=== PATIENT | female | born 1995 | race Caucasian/White ===

== ENCOUNTER 2020-02-04 07:59 | Emergency (ER) | payer BC ==
--- NOTE | 2020-02-04 08:09 | EDM.PDOC ---
ED HPI GENERAL MEDICAL PROBLEM - General Chief Complaint: Abdominal Pain Stated Complaint: ABDOMINAL CRAMPING Time Seen by Provider: 02/04/20 08:08 Source of Information: Reports: Patient History Limitations: Reports: No Limitations - History of Present Illness INITIAL COMMENTS - FREE TEXT/NARRATIVE: This 24 year old female is admitted to the ED with a chief complaint of generalized abdominal pain that started one week ago that moved to her right lower quad yesterday. She also complains of constipation. No nausea or vomiting. Her LMP was 4-5 days ago which she feels that this could be related to it as well. She denies any urinary complaints. No other complaints at this time. Abdominal Pain Score (Numeric/FACES): 8 - Related Data Allergies Allergy/AdvReac Type Severity Reaction Status Date / Time No Known Allergies Allergy Verified 02/04/20 08:09 Home Meds: Home Meds Phenazopyridine HCl [Pyridium] 100 mg PO BID 3 Days #6 tablet 02/04/20 [Rx] Sulfamethoxazole/Trimethoprim [Septra DS] 1 each PO BID 10 Days #20 tab [Rx] ED ROS GENERAL - Review of Systems Review Of Systems: Comprehensive ROS is negative, except as noted in HPI. ED EXAM, GI/ABD - Physical Exam Exam: See Below Exam Limited By: No Limitations General Appearance: Alert, WD/WN, Mild Distress (mild distress complaining of RLQ to Right pelvic pain that is sharp to dull but never goes away.) Eyes: Bilateral: Normal Appearance, EOMI Ears: Normal External Exam, Normal TMs Nose: Normal Inspection, Normal Mucosa Throat/Mouth: Normal Inspection, Normal Oropharynx Head: Atraumatic, Normocephalic Neck: Normal Inspection, Supple, Full Range of Motion Respiratory/Chest: No Respiratory Distress, Lungs Clear, Normal Breath Sounds Cardiovascular: Normal Peripheral Pulses, Regular Rate, Rhythm, No Edema, No Murmur, No Rub GI/Abdominal Exam: Normal Bowel Sounds, Soft, No Organomegaly, No Abnormal Bruit , No Mass, Tender (tenderness noted in the right lower Quad.). No: Guarding, Rebound (Female) Exam: Deferred Rectal (Female) Exam: Deferred Back Exam: Normal Inspection, Full Range of Motion Extremities: Normal Inspection, Normal Capillary Refill Neurological: Alert, Oriented (times 4), CN II-XII Intact, Normal Cognition, Normal Reflexes, No Motor/Sensory Deficits Psychiatric: Normal Affect, Normal Mood Skin Exam: Warm, Dry, Intact, Normal Color, No Rash Lymphatic: No Adenopathy Course - Vital Signs Text/Narrative:: I have reviewed all diagnostic test including the CT of the abdomen and pelvis. The CT scan was unremarkable. Her U/A was positive for at UTI. She will be discharged. She agrees with the discharge plan. Last Recorded V/S: Last Vital Signs Temp 96.5 F L 02/04/20 08:09 Pulse 72 02/04/20 09:43 Resp 16 02/04/20 09:43 BP 111/76 02/04/20 09:43 Pulse Ox 97 02/04/20 09:43 - Orders/Labs/Meds Orders: Active Orders 24 hr Category Date Time Status CULTURE URINE [RM] Stat Lab 02/04/20 08:08 Received Labs: Laboratory Tests 02/04/20 02/04/20 02/04/20 Range/Units 08:08 08:25 08:25 WBC 11.18 H (4.0-11.0) K/uL RBC 4.36 (4.30-5.90) M/uL Hgb 13.0 (12.0-16.0) g/dL Hct 39.9 (36.0-46.0) % MCV 91.5 (80.0-98.0) fL MCH 29.8 (27.0-32.0) pg MCHC 32.6 (31.0-37.0) g/dL RDW Std Deviation 45.6 (28.0-62.0) fl RDW Coeff of Mike 14 (11.0-15.0) % Plt Count 249 (150-400) K/uL MPV 11.50 (7.40-12.00) fL Neut % (Auto) 62.8 (48.0-80.0) % Lymph % (Auto) 24.3 (16.0-40.0) % [place] % (Auto) 11.6 (0.0-15.0) % Eos % (Auto) 1.1 (0.0-7.0) % Baso % (Auto) 0.2 (0.0-1.5) % Neut # (Auto) 7.0 H (1.4-5.7) K/uL Lymph # (Auto) 2.7 H (0.6-2.4) K/uL [place] # (Auto) 1.3 H (0.0-0.8) K/uL Eos # (Auto) 0.1 (0.0-0.7) K/uL Baso # (Auto) 0.0 (0.0-0.1) K/uL Nucleated RBC % 0.0 /100WBC Nucleated RBCs # 0 K/uL Sodium 139 (136-145) mmol/L Potassium 4.2 (3.5-5.1) mmol/L Chloride 105 (98-107) mmol/L Carbon Dioxide 27.7 (21.0-32.0) mmol/L BUN 13 (7.0-18.0) mg/dL Creatinine 0.8 (0.6-1.0) mg/dL Est Cr Clr Drug Dosing 96.73 mL/min Estimated GFR (MDRD) > 60.0 ml/min Glucose 110 H (74-106) mg/dL Calcium 8.6 (8.5-10.1) mg/dL Total Bilirubin 0.1 L (0.2-1.0) mg/dL AST 13 L (15-37) IU/L ALT 16 (14-63) IU/L Alkaline Phosphatase 77 (46-116) U/L Total Protein 7.1 (6.4-8.2) g/dL Albumin 3.5 (3.4-5.0) g/dL Globulin 3.6 (2.6-4.0) g/dL Albumin/Globulin Ratio 1.0 (0.9-1.6) HCG, Qual (NEG) Urine Color YELLOW Urine Appearance SLT CLOUDY Urine pH 6.0 (5.0-8.0) Ur Specific [place] 1.025 (1.001-1.035) Urine Protein NEGATIVE (NEGATIVE) mg/dL Urine Glucose (UA) NEGATIVE (NEGATIVE) mg/dL Urine Ketones NEGATIVE (NEGATIVE) mg/dL Urine Occult Blood MODERATE H (NEGATIVE) Urine Nitrite NEGATIVE (NEGATIVE) Urine Bilirubin NEGATIVE (NEGATIVE) Urine Urobilinogen 0.2 (<2.0) EU/dL Ur Leukocyte Esterase SMALL H (NEGATIVE) Urine RBC 2-5 (0-2/HPF) Urine WBC 10-12 (0-5/HPF) Ur Epithelial Cells FEW (NONE-FEW) Urine Bacteria FEW (NEGATIVE) 02/04/20 Range/Units 08:25 WBC (4.0-11.0) K/uL RBC (4.30-5.90) M/uL Hgb (12.0-16.0) g/dL Hct (36.0-46.0) % MCV (80.0-98.0) fL MCH (27.0-32.0) pg MCHC (31.0-37.0) g/dL RDW Std Deviation (28.0-62.0) fl RDW Coeff of Mike (11.0-15.0) % Plt Count (150-400) K/uL MPV (7.40-12.00) fL Neut % (Auto) (48.0-80.0) % Lymph % (Auto) (16.0-40.0) % [place] % (Auto) (0.0-15.0) % Eos % (Auto) (0.0-7.0) % Baso % (Auto) (0.0-1.5) % Neut # (Auto) (1.4-5.7) K/uL Lymph # (Auto) (0.6-2.4) K/uL [place] # (Auto) (0.0-0.8) K/uL Eos # (Auto) (0.0-0.7) K/uL Baso # (Auto) (0.0-0.1) K/uL Nucleated RBC % /100WBC Nucleated RBCs # K/uL Sodium (136-145) mmol/L Potassium (3.5-5.1) mmol/L Chloride (98-107) mmol/L Carbon Dioxide (21.0-32.0) mmol/L BUN (7.0-18.0) mg/dL Creatinine (0.6-1.0) mg/dL Est Cr Clr Drug Dosing mL/min Estimated GFR (MDRD) ml/min Glucose (74-106) mg/dL Calcium (8.5-10.1) mg/dL Total Bilirubin (0.2-1.0) mg/dL AST (15-37) IU/L ALT (14-63) IU/L Alkaline Phosphatase (46-116) U/L Total Protein (6.4-8.2) g/dL Albumin (3.4-5.0) g/dL Globulin (2.6-4.0) g/dL Albumin/Globulin Ratio (0.9-1.6) HCG, Qual NEGATIVE (NEG) Urine Color Urine Appearance Urine pH (5.0-8.0) Ur Specific [place] (1.001-1.035) Urine Protein (NEGATIVE) mg/dL Urine Glucose (UA) (NEGATIVE) mg/dL Urine Ketones (NEGATIVE) mg/dL Urine Occult Blood (NEGATIVE) Urine Nitrite (NEGATIVE) Urine Bilirubin (NEGATIVE) Urine Urobilinogen (<2.0) EU/dL Ur Leukocyte Esterase (NEGATIVE) Urine RBC (0-2/HPF) Urine WBC (0-5/HPF) Ur Epithelial Cells (NONE-FEW) Urine Bacteria (NEGATIVE) Meds: Medications Discontinued Medications Generic Name Dose Route Start Last Admin Trade Name Freq PRN Reason Stop Dose Admin Sodium Chloride 1,000 mls @ 1,000 mls/hr 02/04/20 08:18 02/04/20 08:27 Normal Saline IV 02/04/20 09:17 1,000 mls/hr .Bolus ONE Administration Oxycodone/Acetaminophen 1 tab 02/04/20 09:19 02/04/20 09:43 Percocet 325-5 Mg PO 02/04/20 09:20 1 tab ONETIME ONE Administration Phenazopyridine HCl 200 mg 02/04/20 10:30 Pyridium PO 02/04/20 10:31 ONETIME ONE Trimethoprim/Sulfamethoxazole 1 tab 02/04/20 10:30 Septra Ds PO 02/04/20 10:31 ONETIME ONE Departure - Departure Time of Disposition: 10:32 Disposition: Home, Self-Care 01 Condition: Good Clinical Impression: UTI (urinary tract infection) Qualifiers: Urinary tract infection type: acute cystitis Hematuria presence: with hematuria Qualified Code(s): N30.01 - Acute cystitis with hematuria - Discharge Information *PRESCRIPTION DRUG MONITORING PROGRAM REVIEWED*: Yes *COPY OF PRESCRIPTION DRUG MONITORING REPORT IN PATIENT MELISA: Yes Instructions: Urinary Tract Infection, Adult, [id number] Referrals: PCP,None [Primary Care Provider] - Forms: ED Department Discharge Additional Instructions: Take all medications as directed. Clear liquids for the next 8 hours and advance your diet as tolerated. Follow up with your PCP in the next two to four days. Rest for the next 24 hours. Return to the ED if your condition gets worse or should you have any questions or concerns. The following information is given to patients seen in the emergency department who are being discharged to home. This information is to outline your options for follow-up care. We provide all patients seen in our emergency department with a follow-up referral. The need for follow-up, as well as the timing and circumstances, are variable depending upon the specifics of your emergency department visit. If you don't have a primary care physician on staff, we will provide you with a referral. We always advise you to contact your personal physician following an emergency department visit to inform them of the circumstance of the visit and for follow-up with them and/or the need for any referrals to a consulting specialist. The emergency department will also refer you to a specialist when appropriate. This referral assures that you have the opportunity for follow-up care with a specialist. All of these measure are taken in an effort to provide you with optimal care, which includes your follow-up. Under all circumstances we always encourage you to contact your private physician who remains a resource for coordinating your care. When calling for follow-up care, please make the office aware that this follow-up is from your recent emergency room visit. If for any reason you are refused follow-up, please contact the [facility] Emergency Department at and asked to speak to the emergency department charge nurse. Sepsis Event Note - Focused Exam Vital Signs: Vital Signs Temp Pulse Resp BP Pulse Ox 02/04/20 09:43 72 16 111/76 97 02/04/20 08:09 96.5 F L 64 17 113/79 97 Date Exam was Performed: 02/04/20 Time Exam was Performed: 10:42 - My Orders Last 24 Hours: My Active Orders 02/04/20 08:08 CULTURE URINE [RM] Stat - Assessment/Plan Last 24 Hours: My Active Orders 02/04/20 08:08 CULTURE URINE [RM] Stat
[2020-02-04] MEDS ORDERED: Sodium Chloride 0.9% 1,000 ML IV ONE (08:18)
[2020-02-04 09:02] LABS: BLOOD UREA NITROGEN,BUN 13 mg/dL (7.0-18.0); CARBON DIOXIDE,CO2 27.7 mmol/L (21.0-32.0); CHLORIDE,CL 105 mmol/L (98-107); GLUCOSE RANDOM 110 mg/dL (74-106); POTASSIUM,K 4.2 mmol/L (3.5-5.1); SODIUM,NA 139 mmol/L (136-145)
[2020-02-04] MEDS ORDERED: Acetaminophen/oxyCODONE 325-5 MG Tab PO ONE (09:19)
--- NOTE | 2020-02-04 09:49 | CT ---
CT abdomen and pelvis Technique: Multiple axial sections were obtained from above the dome of the diaphragm inferiorly through the pubic symphysis. Intravenous contrast was utilized. No oral contrast has been given. Comparison: No prior abdominal imaging is available. Findings: Visualized lung bases show nothing acute. Liver shows no discrete abnormality. Unenhanced hepatic veins are noted from timing of contrast administration. Spleen appears within normal limits in size. Adrenal glands show no nodule. Pancreas shows no discrete abnormality. Gallbladder contains no calcified gallstones. Equivocal fluid around the gallbladder is possible. Kidneys show symmetric contrast enhancement without hydronephrosis or mass. Aorta shows no aneurysm. No retroperitoneal adenopathy or mesenteric abnormalities are seen. No pelvic mass or adenopathy is seen. No free fluid or inflammatory change is identified. Appendix is not visualized with certainty. No free fluid or inflammatory change is appreciated. Bone window settings were reviewed. No acute osseous finding is appreciated. Impression: 1. Questionable fluid around the gallbladder. Please correlate if patient has right upper quadrant symptoms to indicate further evaluation by right upper quadrant abdominal ultrasound. 2. No additional abnormality is appreciated on CT study of the abdomen and pelvis. Diagnostic code #3 This report was dictated in MDT
[2020-02-04] MEDS ORDERED: Sulfamethoxazole/Trimethoprim 800-160 MG Tab PO ONE (10:30)
[2020-02-04] MEDS ORDERED: Phenazopyridine 200 MG Tab PO ONE (10:30)
[2020-02-04] MEDS ORDERED: Iopamidol 755 Mg/ML 100 ML Bottle IVPUSH ONE (16:39)
== END 2020-02-04 10:58 | disposition home or self-care (01) ==
LOC: MW.ED 07:59
DX: N30.00 Acute cystitis without hematuria (principal)
CPT/HCPCS: 36415; 74177; 80053; 81001; 84703; 85025; 87086; 87088; 87186; 99284; A9270; J7030; Q9967; 99283

== ENCOUNTER 2020-03-02 02:33 | Emergency (ER) | payer BC ==
[2020-03-02] MEDS ORDERED: Sodium Chloride 0.9% 1,000 ML IV ONE ×2 (02:53→06:48)
[2020-03-02] MEDS ORDERED: Sodium Chloride 0.9% 2.5 ML Syringe FLUSH PRN (02:53)
[2020-03-02] MEDS ORDERED: Sodium Chloride 0.9% 10 ML Syringe FLUSH PRN (02:53)
[2020-03-02] MEDS ORDERED: Ondansetron 4 MG/2 ML SDV IVPUSH ONE (02:54)
[2020-03-02] MEDS ORDERED: cefTRIAXone 1 GM in Premix Bag 1 BAG IV ONE (03:39)
[2020-03-02] MEDS ORDERED: Sodium Chloride 0.9% 10 ML SDV IV ONE ×2 (03:39→06:40)
[2020-03-02 03:50] LABS: BLOOD UREA NITROGEN,BUN 11 mg/dL (7.0-18.0); CARBON DIOXIDE,CO2 27.1 mmol/L (21.0-32.0); CHLORIDE,CL 100 mmol/L (98-107); GLUCOSE RANDOM 121 mg/dL (74-106); POTASSIUM,K 3.8 mmol/L (3.5-5.1); SODIUM,NA 136 mmol/L (136-145)
[2020-03-02] MEDS ORDERED: Iopamidol 755 Mg/ML 100 ML Bottle IVPUSH ONE (04:14)
[2020-03-02] MEDS ORDERED: Metoclopramide 10 MG/2 ML SDV IVPUSH ONE (04:51)
--- NOTE | 2020-03-02 05:07 | CT ---
INDICATION: Left lower quadrant pain. COMPARISON: None available TECHNIQUE: CT examination of the abdomen and pelvis was performed with the uneventful intravenous administration of 100 cc of Isovue 370 while 3 mm thick axial sections were obtained from the lung bases through the pubic symphysis. Oral contrast was not administered. Please note that all CT scans at this facility use dose modulation, iterative reconstruction, and/or weight-based dosing when appropriate to reduce radiation dose to as low as reasonably achievable. FINDINGS: In the abdomen, the liver has a low-density region in the anterior subcapsular medial segment of the left lobe adjacent to the falciform ligament, probably a hemangioma or focal fatty infiltration. This is a common incidental finding in this region. The rest of the liver is normal in appearance. The spleen, pancreas, and adrenals are normal in appearance. There are multiple patchy areas decreased enhancement scattered throughout the left kidney consistent with pyelonephritis. These are more prominent in the left upper pole than elsewhere. No distinct renal abscess is evident, but the large rounded appearance of some of the areas of hypodensity are worrisome for developing abscesses. The right kidney is normal in appearance with no sign of any abnormal enhancement to suggest pyelonephritis on the right. There is no sign of any renal or ureteral calculi. There is no sign of hydronephrosis. Early contrast excretion is seen in the dependent portion of the right renal collecting system. The gallbladder is normal in appearance. The abdominal aorta is normal in caliber with no sign of dilatation. There is no sign of retroperitoneal mass or adenopathy. The stomach, loops of small bowel, and colon in the abdomen are normal in appearance. In the pelvis, the appendix is nonvisualized, but there is no sign of an inflammatory process in the area of the appendix. The loops of small bowel and colon in the pelvis are normal in appearance. The uterus and adnexal regions are normal in appearance. The urinary bladder is normal in appearance. There is no sign of pelvic or inguinal mass or adenopathy. There is no sign of free air or free fluid in the abdomen or pelvis. There is mild dependent atelectasis in the posterior lung bases. The lung bases are otherwise clear. The osseous structures are normal in appearance for the patient`s age. IMPRESSION: CT of the abdomen shows multiple areas of decreased enhancement scattered throughout the left kidney consistent with pyelonephritis. The size and shape of the some of these are suspicious for early renal abscess formation. No sign of abnormality of the right kidney. Incidental note is made of a hemangioma or fatty focal infiltration of the medial segment of the left lobe of the liver, a common incidental finding of no clinical concern. Normal CT of the pelvis with contrast. No sign of diverticulosis or diverticulitis. Please note that all CT scans at this facility use dose modulation, iterative reconstruction, and/or weight-based dosing when appropriate to reduce radiation dose to as low as reasonably achievable. Dictated by Victor Manuel Navarro MD @ Mar 02 2020 4:57AM Signed by Dr. Victor Manuel Navarro @ Mar 02 2020 5:04AM
--- NOTE | 2020-03-02 05:51 | EDM.PDOC ---
<Keira Azulian - Last Filed: 03/02/20 06:55> ED HPI GENERAL MEDICAL PROBLEM - General Chief Complaint: Fever Stated Complaint: FEVER Time Seen by Provider: 03/02/20 02:35 Source of Information: Reports: Patient History Limitations: Reports: No Limitations - History of Present Illness INITIAL COMMENTS - FREE TEXT/NARRATIVE: 24-year-old female with no past medical history presenting with fever and abdominal pain. 1 week history of intermittent fevers and 1 to 2 days of worsening left lower quadrant abdominal pain along with several days of dysuria. Patient is concerned that she has a UTI. Intermittently taking Tylenol and ibuprofen without relief. Reports nausea and several episodes of nonbloody emesis prior to arrival. Nothing makes her pain better or worse, nonradiating, constant. left lower abdomen Pain Score (Numeric/FACES): 7 - Related Data Allergies Allergy/AdvReac Type Severity Reaction Status Date / Time No Known Allergies Allergy Verified 02/04/20 08:09 Home Meds: Home Meds Phenazopyridine HCl [Pyridium] 100 mg PO BID 3 Days #6 tablet 02/04/20 [Rx] Sulfamethoxazole/Trimethoprim [Septra DS] 1 each PO BID 10 Days #20 tab [Rx] Past Medical History - Past Health History Medical/Surgical History: Denies Medical/Surgical History - Infectious Disease History Infectious Disease History: Reports: None - Past Surgical History Female Surgical History: Reports: Section Social & Family History - Family History Family Medical History: Noncontributory - Tobacco Use Smoking Status *Q: Current Every Day Smoker Years of Tobacco use: 2 Packs/Tins Daily: 1 - Caffeine Use Caffeine Use: Reports: Energy Drinks - Recreational Drug Use Recreational Drug Use: No ED ROS GENERAL - Review of Systems Review Of Systems: See Below Constitutional: Reports: Fever, Chills, Malaise HEENT: Reports: No Symptoms Respiratory: Denies: Shortness of Breath Cardiovascular: Denies: Chest Pain Endocrine: Reports: No Symptoms GI/Abdominal: Reports: Abdominal Pain, Black Stool, Bloody Stool, Diarrhea, Distension, Hematemesis, Hematochezia, Melena, Nausea, Vomiting : Reports: Dysuria, Frequency. Denies: Discharge, Flank Pain, Hematuria Musculoskeletal: Denies: Back Pain Skin: Denies: Rash Neurological: Denies: Headache Psychiatric: Reports: No Symptoms Hematologic/Lymphatic: Reports: No Symptoms Immunologic: Reports: No Symptoms ED EXAM, SEPSIS - Physical Exam Exam: See Below Text/Narrative:: 24-year-old female with fever and abdominal pain. Patient mildly tachycardic, otherwise [hemodynamically stable, afebrile], well- appearing, looks nontoxic. Differential diagnosis includes but is not limited to: UTI, pyelonephritis, renal abscess, sepsis, bacteremia, diverticulitis, epiploic appendagitis, colitis, intra-abdominal infection, kidney stone, and many others [] Plan: Patient is stable to discharge home with outpatient primary care follow- up. Strict emergency department return precautions were provided, patient indicated understanding. All questions were answered prior to departure. Discharged in good condition. Course - Vital Signs Text/Narrative:: Tachycardia resolved after IV fluids. IV access established and labs were sent. CBC shows a leukocytosis. INR and lactate are normal. Electrolytes and renal function normal. Hepatic markers reassuring. Urinalysis appears grossly infected, urine culture sent. IV Zofran given followed by IV Reglan, IV ceftriaxone, 1 L of normal saline. Heart rate improved after these therapies. Blood cultures drawn x2 prior to antibiotics. Obtained CT imaging of the abdomen/pelvis, which was concerning for a left-sided pyelonephritis with possible early developing renal abscesses. Given that we do not have interventional radiology available at our facility, the patient will need to be transferred to [facility] in [place], [place] for a higher level of care. I spoke with the accepting hospitalist Dr. Jacobson in the [facility] ED who agrees to admit. At shift change I had ordered a second liter of normal saline and 1 g of vancomycin IV. We are awaiting ground EMS transport to [facility] at time of shift change at 7 AM. Signed out to my partner Dr. Cardozo awaiting transfer. Last Recorded V/S: Last Vital Signs Temp 98.9 F 03/02/20 08:36 Pulse 79 03/02/20 08:36 Resp 16 03/02/20 08:36 BP 92/51 L 03/02/20 08:36 Pulse Ox 98 03/02/20 08:36 - Orders/Labs/Meds Orders: Active Orders 24 hr Category Date Time Status CULTURE BLOOD [BC] Stat Lab 03/02/20 03:19 Received CULTURE BLOOD [BC] Stat Lab 03/02/20 03:35 Received CULTURE URINE [RM] Stat Lab 03/02/20 02:50 Received Blood Culture x2 Reflex Set [OM.PC] Stat Oth 03/02/20 02:53 Ordered Saline Lock Insert [OM.PC] Stat Oth 03/02/20 02:53 Ordered Labs: Laboratory Tests 03/02/20 03/02/20 03/02/20 Range/Units 02:50 02:50 03:19 WBC 12.92 H (4.0-11.0) K/uL RBC 4.27 L (4.30-5.90) M/uL Hgb 12.9 (12.0-16.0) g/dL Hct 38.1 (36.0-46.0) % MCV 89.2 (80.0-98.0) fL MCH 30.2 (27.0-32.0) pg MCHC 33.9 (31.0-37.0) g/dL RDW Std Deviation 42.8 (28.0-62.0) fl RDW Coeff of Mike 13 (11.0-15.0) % Plt Count 229 (150-400) K/uL MPV 10.70 (7.40-12.00) fL Neut % (Auto) 75.5 (48.0-80.0) % Lymph % (Auto) 9.4 L (16.0-40.0) % [place]air % (Auto) 14.9 (0.0-15.0) % Eos % (Auto) 0.0 (0.0-7.0) % Baso % (Auto) 0.2 (0.0-1.5) % Neut # (Auto) 9.8 H (1.4-5.7) K/uL Lymph # (Auto) 1.2 (0.6-2.4) K/uL [place] # (Auto) 1.9 H (0.0-0.8) K/uL Eos # (Auto) 0.0 (0.0-0.7) K/uL Baso # (Auto) 0.0 (0.0-0.1) K/uL Nucleated RBC % 0.0 /100WBC Nucleated RBCs # 0 K/uL INR Lactate (0.20-2.00) mmol/L Sodium (136-145) mmol/L Potassium (3.5-5.1) mmol/L Chloride (98-107) mmol/L Carbon Dioxide (21.0-32.0) mmol/L BUN (7.0-18.0) mg/dL Creatinine (0.6-1.0) mg/dL Est Cr Clr Drug Dosing mL/min Estimated GFR (MDRD) ml/min Glucose (74-106) mg/dL Calcium (8.5-10.1) mg/dL Total Bilirubin (0.2-1.0) mg/dL AST (15-37) IU/L ALT (14-63) IU/L Alkaline Phosphatase (46-116) U/L Total Protein (6.4-8.2) g/dL Albumin (3.4-5.0) g/dL Globulin (2.6-4.0) g/dL Albumin/Globulin Ratio (0.9-1.6) Urine Color DARK YELLOW Urine Appearance CLOUDY Urine pH 6.0 (5.0-8.0) Ur Specific Melvin >= 1.030 (1.001-1.035) Urine Protein 100 H (NEGATIVE) mg/dL Urine Glucose (UA) NEGATIVE (NEGATIVE) mg/dL Urine Ketones 40 H (NEGATIVE) mg/dL Urine Occult Blood MODERATE H (NEGATIVE) Urine Nitrite POSITIVE H (NEGATIVE) Urine Bilirubin SMALL H (NEGATIVE) Urine Ictotest NEGATIVE Urine Urobilinogen 1.0 (<2.0) EU/dL Ur Leukocyte Esterase NEGATIVE (NEGATIVE) Urine RBC 6-8 (0-2/HPF) Urine WBC 75-80 (0-5/HPF) Ur Epithelial Cells FEW (NONE-FEW) Urine Bacteria 1+ H (NEGATIVE) Urine Mucus MODERATE (NONE-MOD) Urine HCG, Qual NEGATIVE (NEGATIVE) 03/02/20 03/02/20 03/02/20 Range/Units 03:19 03:19 03:19 WBC (4.0-11.0) K/uL RBC (4.30-5.90) M/uL Hgb (12.0-16.0) g/dL Hct (36.0-46.0) % MCV (80.0-98.0) fL MCH (27.0-32.0) pg MCHC (31.0-37.0) g/dL RDW Std Deviation (28.0-62.0) fl RDW Coeff of Mike (11.0-15.0) % Plt Count (150-400) K/uL MPV (7.40-12.00) fL Neut % (Auto) (48.0-80.0) % Lymph % (Auto) (16.0-40.0) % St. Clair % (Auto) (0.0-15.0) % Eos % (Auto) (0.0-7.0) % Baso % (Auto) (0.0-1.5) % Neut # (Auto) (1.4-5.7) K/uL Lymph # (Auto) (0.6-2.4) K/uL St. Clair # (Auto) (0.0-0.8) K/uL Eos # (Auto) (0.0-0.7) K/uL Baso # (Auto) (0.0-0.1) K/uL Nucleated RBC % /100WBC Nucleated RBCs # K/uL INR 1.09 Lactate 1.0 (0.20-2.00) mmol/L Sodium 136 (136-145) mmol/L Potassium 3.8 (3.5-5.1) mmol/L Chloride 100 (98-107) mmol/L Carbon Dioxide 27.1 (21.0-32.0) mmol/L BUN 11 (7.0-18.0) mg/dL Creatinine 0.8 (0.6-1.0) mg/dL Est Cr Clr Drug Dosing 92.37 mL/min Estimated GFR (MDRD) > 60.0 ml/min Glucose 121 H (74-106) mg/dL Calcium 8.6 (8.5-10.1) mg/dL Total Bilirubin 0.5 (0.2-1.0) mg/dL AST 15 (15-37) IU/L ALT 16 (14-63) IU/L Alkaline Phosphatase 61 (46-116) U/L Total Protein 7.8 (6.4-8.2) g/dL Albumin 3.3 L (3.4-5.0) g/dL Globulin 4.5 H (2.6-4.0) g/dL Albumin/Globulin Ratio 0.7 L (0.9-1.6) Urine Color Urine Appearance Urine pH (5.0-8.0) Ur Specific Melvin (1.001-1.035) Urine Protein (NEGATIVE) mg/dL Urine Glucose (UA) (NEGATIVE) mg/dL Urine Ketones (NEGATIVE) mg/dL Urine Occult Blood (NEGATIVE) Urine Nitrite (NEGATIVE) Urine Bilirubin (NEGATIVE) Urine Ictotest Urine Urobilinogen (<2.0) EU/dL Ur Leukocyte Esterase (NEGATIVE) Urine RBC (0-2/HPF) Urine WBC (0-5/HPF) Ur Epithelial Cells (NONE-FEW) Urine Bacteria (NEGATIVE) Urine Mucus (NONE-MOD) Urine HCG, Qual (NEGATIVE) Meds: Medications Discontinued Medications Generic Name Dose Route Start Last Admin Trade Name Freq PRN Reason Stop Dose Admin Acetaminophen 1,000 mg 03/02/20 06:40 03/02/20 06:46 Tylenol Extra Strength PO 03/02/20 06:41 1,000 mg ONETIME ONE Administration Sodium Chloride 1,000 mls @ 1,000 mls/hr 03/02/20 02:53 03/02/20 03:21 Normal Saline IV 03/02/20 03:52 1,000 mls/hr .Bolus ONE Administration Ceftriaxone Sodium/Dextrose 1 50 mls @ 100 mls/hr 03/02/20 03:39 03/02/20 04: 01 gm/ Premix IV 03/02/20 04:08 100 mls/hr ONETIME ONE Administration Sodium Chloride 1,000 mls @ 999 mls/hr 03/02/20 06:48 03/02/20 06:49 Normal Saline IV 03/02/20 07:48 999 mls/hr .Bolus ONE Administration Vancomycin HCl 1 gm/ Sodium 250 mls @ 166 mls/hr 03/02/20 06:49 03/02/20 07: 02 Chloride IV 03/02/20 08:19 166 mls/hr ONETIME ONE Administration Ibuprofen 400 mg 03/02/20 06:40 03/02/20 06:47 Motrin PO 03/02/20 06:41 400 mg ONETIME ONE Administration Iopamidol 100 ml 03/02/20 04:14 03/02/20 04:15 Isovue-370 (76%) IVPUSH 03/02/20 04:15 100 ml ONETIME ONE Administration Metoclopramide HCl 5 mg 03/02/20 04:51 03/02/20 05:13 Reglan IVPUSH 03/02/20 04:52 5 mg ONETIME ONE Administration Ondansetron HCl 4 mg 03/02/20 02:54 03/02/20 03:21 Zofran IVPUSH 03/02/20 02:55 4 mg ONETIME ONE Administration Sodium Chloride 10 ml 03/02/20 02:53 Saline Flush FLUSH ASDIRECTED PRN Keep Vein Open Sodium Chloride 2.5 ml 03/02/20 02:53 03/02/20 06:48 Saline Flush FLUSH 2.5 ml ASDIRECTED PRN Administration Keep Vein Open Sodium Chloride 1,000 ml 03/02/20 03:39 03/02/20 07:09 Normal Saline IV 03/02/20 03:40 Not Given ONETIME ONE Sodium Chloride 1,000 ml 03/02/20 06:40 03/02/20 07:09 Normal Saline IV 03/02/20 06:41 Not Given ONETIME ONE Departure - Departure Time of Disposition: 05:50 Disposition: DC/Tfer to Acute Hospital 02 Condition: Good Clinical Impression: Sepsis due to undetermined organism - Discharge Information *PRESCRIPTION DRUG MONITORING PROGRAM REVIEWED*: Not Applicable *COPY OF PRESCRIPTION DRUG MONITORING REPORT IN PATIENT MELISA: Not Applicable Referrals: PCP,None [Primary Care Provider] - Forms: ED Department Discharge Sepsis Event Note (ED) - Evaluation Sepsis Screening Result: Possible Sepsis Risk - Focused Exam Vital Signs: Vital Signs Temp Temp Pulse Resp BP Pulse Ox 03/02/20 08:36 98.9 F 79 16 92/51 L 98 03/02/20 07:47 98.9 F 03/02/20 07:16 98.9 F 03/02/20 06:50 80 16 97/61 99 03/02/20 06:47 99.5 F 03/02/20 06:46 99.5 F 03/02/20 06:39 99.5 F 86 17 97/53 L 99 03/02/20 06:36 76 99 03/02/20 06:03 98.2 F 88 17 99/55 L 97 03/02/20 05:22 101/62 03/02/20 05:21 98.0 F 03/02/20 05:19 80 18 99/61 98 03/02/20 02:45 98.1 F 96 17 110/65 97 <Killelea,Lety - Last Filed: 03/02/20 08:59> Course - Re-Assessments/Exams Free Text/Narrative Re-Assessment/Exam: 03/02/20 07:34 The patient was reassessed. She is resting comfortably in no acute distress. She reports that she is feeling slightly better. Offered pain medications but she is feeling fine at this time. Again discussed plan of care and currently awaiting ground crew for transfer to [facility]. 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
[2020-03-02] MEDS ORDERED: Acetaminophen 500 MG Tab PO ONE (06:40)
[2020-03-02] MEDS ORDERED: Ibuprofen 400 MG Tab PO ONE (06:40)
== END 2020-03-02 08:54 ==
LOC: MW.ED 02:33
DX: A41.9 Sepsis, unspecified organism (principal); F17.210 Nicotine dependence, cigarettes, uncomplicated
CPT/HCPCS: 36415; 74177; 80053; 81001; 81025; 83605; 85025; 85610; 87040; 87086; 87088; 87186; 96361; 96365; 96366; 96367; 96375; 99285; A9270; J0696; J2405; J2765; J3370; J7030; J7050; Q9967; 99284

== ENCOUNTER 2020-04-25 12:50 | Emergency (ER) | payer BC ==
[2020-04-25] MEDS ORDERED: Lidocaine 1% with EPINEPHrine 1:100,000 20 ML MDV ONE (12:54)
[2020-04-25] MEDS ORDERED: Lidocaine 1% with EPINEPHrine 1:100,000 20 ML MDV INJECT ONE (13:02)
--- NOTE | 2020-04-25 13:49 | EDM.PDOC ---
ED HPI GENERAL MEDICAL PROBLEM - General Chief Complaint: Laceration Stated Complaint: CUT THUMB Time Seen by Provider: 04/25/20 12:51 Source of Information: Reports: Patient History Limitations: Reports: No Limitations - History of Present Illness INITIAL COMMENTS - FREE TEXT/NARRATIVE: HISTORY AND PHYSICAL: History of present illness: Patient is a 24-year-old female presents to the ED today with concern of a laceration to her left thumb. Patient states that she was opening a box with a pocket knife when the knife had slipped and went into her thumb. Patient states she put pressure on the thumb right away and came to the emergency room. Patient states she is up-to-date on her tetanus and just had it a few years ago. Patient states she has been fully able to move the thumb and has full sensation. Patient denies any other symptoms or concerns. Patient denies fever, chills, chest pain, shortness of breath, or cough. Denies headache, neck stiff ness, change in vision, syncope, or near syncope. Denies nausea, vomiting, abdominal pain, diarrhea, constipation, or dysuria. Has not noted any blood in urine or stool. Patient has been eating and drinking appropriately. Review of systems: As per history of present illness and below otherwise all systems reviewed and negative. Past medical history: As per history of present illness and as reviewed below otherwise noncontributory. Surgical history: As per history of present illness and as reviewed below otherwise noncontributory. Social history: See social history for further information Family history: As per history of present illness and as reviewed below otherwise noncontributory. Physical exam: General: Patient is alert, oriented, and in no acute distress. Patient sitting comfortably on exam table. HEENT: Atraumatic, normocephalic, pupils equal and reactive bilaterally, negative for conjunctival pallor or scleral icterus, mucous membranes moist, TMs normal bilaterally, throat clear, neck supple, nontender, trachea midline. No drooling or trismus noted. No meningeal signs. No hot potato voice noted. Lungs: Clear to auscultation, breath sounds equal bilaterally, chest nontender. Heart: S1S2, regular rate and rhythm without overt murmur Abdomen: Soft, nondistended, nontender. Negative for masses or hepatosplenomegaly. Negative for costovertebral tenderness. Pelvis: Stable nontender. Genitourinary: Deferred. Rectal: Deferred. Skin: Intact, warm, dry. No lesions or rashes noted. Extremities: There is a 1cm laceration of the base of the left thumb just superior to the thenar eminence. Patient has full range of motion of complete left hand without deficit. Radial pulses grossly intact with capillary refill less than 2 seconds of the left upper extremity. Otherwise, atraumatic, negative for cords or calf pain. Neurovascular unremarkable. Neuro: Awake, alert, oriented. Cranial nerves II through XII unremarkable. Cerebellum unremarkable. Motor and sensory unremarkable throughout. Exam nonfocal. Notes: Prior to my exam, laceration was bleeding moderately and nursing staff applied pressure immediately prior to my exam. Upon my exam, bleeding had stopped and remained controlled through remainder of patient stay in the ED. After suturing, patient monitored for an additional 15 to 20 minutes without rebleed. Discussed importance for follow-up with a primary care provider. Voices understanding and is agreeable to plan of care. Denies any further questions or concerns at this time. Diagnostics: Hand XR Therapeutics: Lidocaine, Sutures Prescription: None Impression: Thumb laceration, left Plan: 1. Keep the area clean and dry. Continue to monitor for signs of infection as discussed. Sutures to be removed in 7-10 days. 2. Tylenol and/or ibuprofen as directed and as needed for pain management and discomfort. 3. Please follow-up with your primary care provider as discussed. Return to the ED as needed and as discussed. Definitive disposition and diagnosis as appropriate pending reevaluation and review of above. Left Thumb Pain Score (Numeric/FACES): 4 - Related Data Allergies Allergy/AdvReac Type Severity Reaction Status Date / Time No Known Allergies Allergy Verified 04/25/20 12:52 Home Meds: Home Meds . [No Known Home Meds] 04/25/20 [History] Past Medical History - Past Health History Medical/Surgical History: Denies Medical/Surgical History - Infectious Disease History Infectious Disease History: Reports: None - Past Surgical History Female Surgical History: Reports: Section Social & Family History - Family History Family Medical History: Noncontributory - Tobacco Use Smoking Status *Q: Never Smoker - Caffeine Use Caffeine Use: Reports: None - Recreational Drug Use Recreational Drug Use: No ED ROS GENERAL - Review of Systems Review Of Systems: Comprehensive ROS is negative, except as noted in HPI. ED EXAM, SKIN/RASH Exam: See Below (see dictation) ED SKIN PROCEDURES - Laceration/Wound Repair Left Digit - 1st (Thumb) Appearance: Muscle, Linear, Clean Distal NVT: Neuro & Vascular Intact, No Tendon Injury Anesthetic Type: Local Local Anesthesia - Lidocaine (Xylocaine): 1% Plain Local Anesthetic Volume: 5cc Skin Prep: Chlorhexidine (Hibiciens), Providone-Iodine (Betadine), Saline Saline Irrigation (cc's): 100 Exploration/Debridement/Repair: Wound Explored, Explored to Base, No Foreign Material Found Closed with: Sutures Lac/Wound length In cm: 1 Suture Size: 4-0 # of Sutures: 5 Suture Type: Silk, Interrupted Drain Placement: No Sterile Dressing Applied: Nurse Tetanus Status Addressed: Yes (up to date) Complications: No Course - Vital Signs Last Recorded V/S: Last Vital Signs Temp 97.6 F 04/25/20 12:52 Pulse 87 04/25/20 12:52 Resp 18 04/25/20 12:52 BP 127/81 04/25/20 12:52 Pulse Ox 98 04/25/20 12:52 - Orders/Labs/Meds Meds: Medications Discontinued Medications Generic Name Dose Route Start Last Admin Trade Name Freq PRN Reason Stop Dose Admin Lidocaine HCl Confirm 04/25/20 13:01 04/25/20 13:16 Xylocaine-Mpf 1% Administered 04/25/20 13:02 Not Given Dose 5 ml .ROUTE .STK-MED ONE Lidocaine HCl 5 ml 04/25/20 13:14 04/25/20 13:16 Xylocaine-Mpf 1% INJECT 04/25/20 13:15 5 ml ONETIME ONE Administration Lidocaine/Epinephrine Confirm 04/25/20 12:54 04/25/20 13:03 Xylocaine 1% With Epinephrine 1:100,000 Administered 04/25/20 12:55 Not Given Dose 20 ml .ROUTE .STK-MED ONE Lidocaine/Epinephrine 20 ml 04/25/20 13:02 04/25/20 13:16 Xylocaine 1% With Epinephrine 1:100,000 INJECT 04/25/20 13:03 Not Given ONETIME ONE Departure - Departure Time of Disposition: 13:48 Disposition: Home, Self-Care 01 Clinical Impression: Finger laceration Qualifiers: Encounter type: initial encounter Finger: thumb Damage to nail status: without damage Foreign body presence: without foreign body Laterality: left Qualified Code(s): S61.012A - Laceration without foreign body of left thumb without damage to nail, initial encounter - Discharge Information Instructions: Laceration Care, Adult, [id number] Referrals: PCP,None [Primary Care Provider] - Forms: ED Department Discharge Additional Instructions: The following information is given to patients seen in the emergency department who are being discharged to home. This information is to outline your options for follow-up care. We provide all patients seen in our emergency department with a follow-up referral. The need for follow-up, as well as the timing and circumstances, are variable depending upon the specifics of your emergency department visit. If you don't have a primary care physician on staff, we will provide you with a referral. We always advise you to contact your personal physician following an emergency department visit to inform them of the circumstance of the visit and for follow-up with them and/or the need for any referrals to a consulting specialist. The emergency department will also refer you to a specialist when appropriate. This referral assures that you have the opportunity for follow-up care with a specialist. All of these measure are taken in an effort to provide you with optimal care, which includes your follow-up. Under all circumstances we always encourage you to contact your private physician who remains a resource for coordinating your care. When calling for follow-up care, please make the office aware that this follow-up is from your recent emergency room visit. If for any reason you are refused follow-up, please contact the [facility] Emergency Department at and asked to speak to the emergency department charge nurse. [facility] [address] [place] [id number] [address] 1. Keep the area clean and dry. Continue to monitor for signs of infection as discussed. Sutures to be removed in 7-10 days. 2. Tylenol and/or ibuprofen as directed and as needed for pain management and discomfort. 3. Please follow-up with your primary care provider as discussed. Return to the ED as needed and as discussed. Sepsis Event Note (ED) - Evaluation Sepsis Screening Result: No Definite Risk - Focused Exam Vital Signs: Vital Signs Temp Pulse Resp BP Pulse Ox 04/25/20 12:52 97.6 F 87 18 127/81 98
--- NOTE | 2020-04-25 13:54 | CR ---
Addendum: 2 additional views are now available to make this a 3 view left hand study. Joint spaces are preserved. No acute fracture, dislocation or other bony abnormality is seen. Soft tissue injury is noted within the thenar region. Impression: 1. Soft tissue injury. 2. No acute bony abnormality is appreciated on 3 view left hand study. Diagnostic code #2 This report was dictated in MDT --- Addendum1 above dictated on [04/25/2020 19:01] by [Marifer Bowie Hilton J.] --- --- Addendum1 above signed on [04/25/2020 19:02] by [Marifer Bowie Hilton J.] --- --- Original report below dictated on [04/25/2020 12:50] by [Marifer Bowie Hilton J.] --- --- Original report below signed on [04/25/2020 12:52] by [Marifer Bowie Hilton J.] --- Left hand: Single lateral view of the left hand was obtained. No discrete fracture or other bony abnormality is noted. Impression: 1. No discrete abnormality is seen on single lateral view of the left hand. Diagnostic code #1 This report was dictated in MDT --- Addendum1 signed ---
== END 2020-04-25 14:25 | disposition home or self-care (01) ==
LOC: MW.ED 12:50
DX: S61.012A Laceration without foreign body of left thumb without damage to nail, initial encounter (principal); W26.0XXA Contact with knife, initial encounter
CPT/HCPCS: 12001; 73130; 99283; J2001; 99282

== ENCOUNTER 2020-05-02 11:26 | Emergency (ER) | payer BC | END 2020-05-02 11:44 | disposition home or self-care (01) | LOC: MW.ED 11:26 | DX: S61.012D Laceration without foreign body of left thumb without damage to nail, subsequent encounter (principal) | CPT/HCPCS: 99281 ==